=== PATIENT | female | born 1960 | race Caucasian/White ===

== ENCOUNTER 2020-10-31 14:25 | Emergency (ER) | payer BC ==
[~2020-10-31] VITALS: Ht 167.6 cm; Wt 109.0 kg
[2020-10-31] MEDS ORDERED: DEXAMETHASONE SOD PHOS 10 MG/ML VIAL. PO ONE (15:30)
--- NOTE | 2020-10-31 15:47 | RAD ---
XR CHEST 1V 10/31/2020 3:34 PM INDICATION: Cough COMPARISON: None available TECHNIQUE: Portable frontal view of the chest is provided. FINDINGS: The cardiomediastinal silhouette is within normal limits. Faint opacity identified at the right lung base. There are no significant pleural effusions. There is no pulmonary vascular congestion. No pneumothora x. No suspicious osseous abnormality. IMPRESSION: Faint opacity at the right lung base may represent developing pneumonitis of infectious/inflammatory etiology. Short-term follow-up could be of benefit to assess for developing consolidative change. Electronically signed by: Molly Busby MD (10/31/2020 3:45 PM) [id number]
[2020-10-31] MEDS ORDERED: METH4TAB2 PO (16:00)
[2020-10-31] MEDS ORDERED: ALBUTEROL SULFATE 8GM INHALER. INH ONE (16:00)
[2020-10-31] MEDS ORDERED: AZIT250T6 PO (16:00)
--- NOTE | 2020-10-31 16:00 | PHYS DOC ---
Past History Past Surgical History: No Surgical History (JUAN FULLER APRN) Alcohol Use: None (JUAN FULLER APRN) General Adult EDM: Chief Complaint: COUGH HPI: HPI: Patient is a 60-year-old female presents with cough, shortness of breath with exertion and fatigue. Patient denies fever. Patient also reports loss of taste and smell. Patient states that symptoms are worse when she is lying down. Patient states that she is been taking [place] at home for symptoms. Denies medical history. (JUAN FULLER APRN) Review of Systems: Review of Systems: Constitutional: Denies fever or chills Eyes: Denies change in visual acuity HENT: Reports nasal congestion, denies sore throat Respiratory: Reports cough and dyspnea with exertion Cardiovascular: Denies chest pain or edema GI: Denies abdominal pain, nausea, vomiting, bloody stools or diarrhea : Denies dysuria Musculoskeletal: Denies back pain or joint pain Integument: Denies rash Neurologic: Reports headache. Reports loss of taste and smell. Endocrine: Denies polyuria or polydipsia Lymphatic: Denies swollen glands Psychiatric: Denies depression or anxiety (JUAN FULLER APRN) Current Medications: Current Meds: Current Medications Medications (Trade) Dose Ordered Sig/Natalie Start Time Stop Time Status Last Admin Dose Admin Dexamethasone Sodium Phosphate (Decadron) 10 mg 1X ONCE 10/31/20 15:30 10/31/20 15:31 DC (JUAN FULLER APRN) Allergies: Allergies: Allergies Coded Allergies Type Severity Reaction Last Updated Verified Sulfa (Sulfonamide Antibiotics) Allergy Unknown 10/31/20 Yes (JUAN FULLER APRN) Physical Exam: PE: Constitutional: Well developed, well nourished, no acute distress, non-toxic appearance. [] HENT: Normocephalic, atraumatic, bilateral external ears normal, oropharynx moist, no oral exudates, nose normal. [] Eyes: PERRLA, EOMI, conjunctiva normal, no discharge. [] Neck: Normal range of motion, no tenderness, supple, no stridor. [] Cardiovascular:Heart rate regular rhythm, no murmur [] Lungs & Thorax: Bilateral breath sounds clear to auscultation [] Abdomen: Bowel sounds normal, soft, no tenderness, no masses, no pulsatile masses. [] Skin: Warm, dry, no erythema, no rash. [] Back: No tenderness, no CVA tenderness. [] Extremities: No tenderness, no cyanosis, no clubbing, ROM intact, no edema. [] Neurologic: Alert and oriented X 3, normal motor function, normal sensory function, no focal deficits noted. [] Psychologic: Affect normal, judgement normal, mood normal. [] (JUAN FLULER APRN) Current Patient Data: Vital Signs: Vital Signs Date Time Temp Pulse Resp B/P (MAP) Pulse Ox O2 Delivery O2 Flow Rate FiO2 10/31/20 14:59 98.5 78 22 146/91 98 Room Air (JUAN FULLER APRN) EKG: EKG: [] (JUAN FULLER APRN) Radiology/Procedures: Radiology/Procedures: []XR CHEST 1V 10/31/2020 3:34 PM INDICATION: Cough COMPARISON: None available TECHNIQUE: Portable frontal view of the chest is provided. FINDINGS: The cardiomediastinal silhouette is within normal limits. Faint opacity identified at the right lung base. There are no significant pleural effusions. There is no pulmonary vascular congestion. No pneumothorax. No suspicious osseous abnormality. IMPRESSION: Faint opacity at the right lung base may represent developing pneumonitis of infectious/inflammatory etiology. Short-term follow-up could be of benefit to assess for developing consolidative change. Electronically signed by: Molly Busby MD (10/31/2020 3:45 PM) [id number] (JUAN FULLER APRN) Heart Score: C/O Chest Pain: No Risk Factors: Risk Factors: DM, Current or recent (<one month) smoker, HTN, HLP, family history of CAD, obesity. Risk Scores: Score 0 - 3: 2.5% MACE over next 6 weeks - Discharge Home Score 4 - 6: 20.3% MACE over next 6 weeks - Admit for Clinical Observation Score 7 - 10: 72.7% MACE over next 6 weeks - Early Invasive Strategies (JUAN FULLER APRN) Course & Med Decision Making: Course & Med Decision Making Pertinent Labs and Imaging studies reviewed. (See chart for details) [] 60-year-old female presents with cough and dyspnea with exertion for the last 3 days. Patient states that her cough is worse with laying down. Patient also reports loss of taste and smell. Hemodynamically stable. Patient swabbed for Covid. Dexamethasone given. Albuterol inhaler ordered. Patient most likely has Covid pneumonia. Chest x-ray shows opacities on right lung base. Patient given azithromycin and Medrol Dosepak. Patient instructed to call PCP and make a follow-up appointment. Patient given strict return precautions. Patient hemodynamically stable upon discharge. Patient is able to ambulate on her own. Patient is appreciative and okay with discharge plan. (JUAN FULLER APRN) Course & Med Decision Making Did not see or evaluate patient. Agree with MACHINE WORKER's work-up and disposition per note (MICKEY LOVE MD) Dragon Disclaimer: Dragon Disclaimer: This electronic medical record was generated, in whole or in part, using a voice recognition dictation system. (JUAN FULLER APRN) Departure Departure: Impression: Primary Impression: Pneumonia Qualified Codes: J18.9 - Pneumonia, unspecified organism Additional Impression: Person under investigation for COVID-19 Disposition: 01 HOME / SELF CARE / HOMELESS Condition: STABLE Referrals: KARINA CASILLAS (PCP) Patient Instructions: Pneumonia, Child, [id number] Additional Instructions: You were seen in the emergency room for a cough, shortness of breath with exertion, fatigue. Chest x-ray looked suspicious for pneumonia. I am sending you home with a prescription for azithromycin which is an antibiotic. I am also going to send you home with a prescription for a Medrol Dosepak, which is a steroid. It would probably be a good idea to go ahead and purchase a pulse ox from the pharmacy. If your oxygen drops below 90% we would want to see you in the emergency room. Please make a follow-up appointment with your PCP for further management. Return to the emergency room if you have worsening symptoms or concerns. EMERGENCY DEPARTMENT GENERAL DISCHARGE INSTRUCTIONS Thank you for coming to [facility] (ED) today and trusting us with you care. We trust that you had a positivie experience in our Emergency Department. If you wish to speak to the department management, you may call the director at [phone]. YOUR FOLLOW UP INSTRUCTIONS ARE FOLLOWS: 1. Do you have a private Doctor? If you do not have a private doctor, please ask for a resource list of physicians or clinics that may be able to assist you with follow up care. 2. The Emergency Physician has interpreted your x-rays. The X-Ray specialist will also review them. If there is a change in the findings, you will be notified in 48 hours when at all possible. 3. A lab test or culture has been done, your results will be reviewed and you will be notified if you need a change in treatment. ADDITIONAL INSTRUCTIONS AND INFORMATION: 1. Your care today has been supervised by a physician who is specially trained in emergency care. Many problems require more than one evaluation for a complete diagnosis and treatment. We recommend that you schedule your follow up appointment as michelle mmended to ensure complete treatment of you illness or injury. If you are unable to obtain follow up care and continue to have a problem, or if your condition worsens, we recommend that you return to the ED. 2. We are not able to safely determine your condition over the phone nor are we able to give sound medical advice over the phone. For these safety reasons, if you call for medical advice we will ask you to come to the ED for further evaluation. 3. If you have any questions regarding these discharge instructions please call the ED at [phone]. SAFETY INFORMATION: In the interest of safety, wellness, and injury prevention; we encourage you to wear your sealbelt, if you smoke; quite smoking, and we encourage family to use a protective helmet for bicycling and other sporting events that present an increased risk for head injury. IF YOUR SYMPTOMS WORSEN OR NEW SYMPTOMS DEVELOP, OR YOU HAVE CONCERNS ABOUT YOUR CONDITION; OR IF YOUR CONDITION WORSENS WHILE YOU ARE WAITING FOR YOUR FOLLOW UP APPOINTMENT; EITHER CONTACT YOUR PRIMARY CARE DOCTOR, THE PHYSICIAN WHOSE NAME AND NUMBER YOU WERE GIVEN, OR RETURN TO THE ED IMMEDIATELY. Scripts Methylprednisolone (MEDROL) 4 Mg Tab.ds.pk 1 PKG PO UD for inflammation for 6 Days, #1 PKG 0 Refills Prov: JUAN FULLER APRN 10/31/20 Azithromycin (AZITHROMYCIN TABLET) 250 Mg Tablet 1 PKG PO UD for pneumonia for 5 Days, #6 TAB 0 Refills 2 the first day followed by 1 for days 2-5 Prov: JUAN FULLER APRN 10/31/20 JUAN FULLER APRN Oct 31, 2020 16:00 MICKEY LOVE MD Oct 31, 2020 17:34
[2020-10-31 16:01] VITALS: BP 153/70
== END 2020-10-31 16:30 | disposition home or self-care (01) ==
LOC: ER 14:25
DX: J18.9 Pneumonia, unspecified organism (principal); Z20.822 Contact with and (suspected) exposure to COVID-19; Z88.2 Allergy status to sulfonamides
CPT/HCPCS: 71045; 94640; 99284; C9803; J1100; U0003; 94664